=== PATIENT | male | born 1955 | race Caucasian/White ===

== ENCOUNTER 2018-05-02 13:46 | Inpatient (IN) | payer OTHER ==
[2018-05-02] MEDS ORDERED: BUPIVACAINE 0.5% (SDV) 30 ML INJ (16:16)
[2018-05-02] MEDS ORDERED: LIDOCAINE 2% (SDV) 5 ML INJ (16:18)
[2018-05-02] MEDS ORDERED: MIDAZOLAM 1 MG/ML 2 ML INJ (16:20)
[2018-05-02] MEDS ORDERED: ROPIVACAINE 0.5 % 30 ML VIAL (16:21)
[2018-05-02] MEDS ORDERED: POLYMYXIN/BACITRACIN 1L IRRIG (17:03)
[2018-05-02] MEDS ORDERED: CEFAZOLIN 1 GM INJ (17:19)
[2018-05-02] MEDS ORDERED: PHENYLephrine (100 MCG/ML) 5ML SYG (17:22)
[2018-05-02] MEDS ORDERED: NEOMYC/POLYMYX/BACIT 30 GM OINT (18:09)
[2018-05-02] MEDS: POLYMYXIN/BACITRACIN 1L IRRIG (18:10)
[2018-05-02] MEDS ORDERED: PROPOFOL 20 ML (20:10)
[2018-05-02] MEDS ORDERED: ONDANSETRON 4 MG INJ (20:10)
[2018-05-02] MEDS ORDERED: DEXAMETHASONE 4 MG/ML 5 ML INJ (20:10)
[2018-05-02] MEDS ORDERED: KETOROLAC 30 MG INJ (20:17)
[2018-05-02] MEDS ORDERED: HYDROmorphONE 1 MG/ML SYG IV (21:30)
[2018-05-02] MEDS ORDERED: KETOROLAC 30 MG INJ IV (21:30)
[2018-05-02] MEDS ORDERED: ALBUTEROL 0.083% (NEB) 2.5 MG/3 ML AMP HHN (21:30)
[2018-05-02] MEDS ORDERED: DIPHENHYDRAMINE 50 MG INJ IV (21:30)
[2018-05-02] MEDS ORDERED: FENTAnyl 50 MCG/ML VIAL IV ×3 (21:30)
[2018-05-02] MEDS ORDERED: hydrALAzine 20 MG INJ IV (21:30)
[2018-05-02] MEDS ORDERED: METOCLOPRAMIDE 10 MG INJ IV (21:30)
[2018-05-02] MEDS ORDERED: LABETALOL HCL 20MG INJ IV (21:30)
[2018-05-02] MEDS ORDERED: oxyCODONE 5 MG TAB PO (21:30)
[2018-05-02] MEDS ORDERED: ONDANSETRON 4 MG INJ IV ×2 (21:30)
[2018-05-02] MEDS ORDERED: OXYCODONE/ACETAMINOPHEN (5/325) TAB PO ×2 (21:30)
[2018-05-02] MEDS ORDERED: EPHEDrine SULFATE 50 MG/5 ML SYG IV (21:30)
[2018-05-02] MEDS ORDERED: HYDROmorphONE 1 MG/5 ML IV SYRINGE IV ×3 (21:30)
[2018-05-02] MEDS ORDERED: MAGNESIUM HYDROXIDE 30ML CUP PO (21:30)
[2018-05-02] MEDS ORDERED: CEFAZOLIN 1 GM INJ IV (21:30)
[2018-05-02] MEDS ORDERED: MIDAZOLAM 1 MG/ML 2 ML INJ IV (21:30)
[2018-05-02] MEDS ORDERED: DIPHENHYDRAMINE 25 MG CAP PO (21:30)
[2018-05-02] MEDS ORDERED: MEPERIDINE 25 MG INJ IV (21:30)
[2018-05-02] MEDS ORDERED: ACETAMINOPHEN 500 MG TAB PO ×2 (21:30)
[2018-05-03] MEDS: CEFAZOLIN 1 GM/50 ML (PMX) 50 ML IVPB ×3 (00:55→17:00)
[2018-05-03] MEDS: SOD CHLORIDE 0.9% 250 ML IV (04:29)
[2018-05-03 05:40] LABS: ADD MAN DIFF? NO
[2018-05-03 05:54] LABS: BASOPHILS % 0.1 % (0.0-2.0); HEMATOCRIT 35.7 % (42.0-52.0); HEMOGLOBIN 11.9 g/dl (14.0-18.0); LYMPHOCYTES # 0.7 10^3/ul (0.8-2.9); LYMPHOCYTES % 5.6 % (15.0-51.0); MEAN CORPUSCULAR HEMOGLOBIN 30.3 pg (29.0-33.0); MEAN CORPUSCULAR HGB CONC 33.3 g/dl (32.0-37.0); MEAN CORPUSCULAR VOLUME 90.8 fl (82.0-101.0); MEAN PLATELET VOLUME 9.9 fl (7.4-10.4); MONOCYTE # 0.5 10^3/ul (0.3-0.9); MONOCYTES % 3.8 % (0.0-11.0); NEUTROPHIL # 10.5 10^3/ul (1.6-7.5); PLATELET COUNT 261 10^3/UL (140-415); RED BLOOD COUNT 3.93 10^6/ul (4.70-6.10); RED CELL DISTRIBUTION WIDTH 12.4 % (11.5-14.5)
[2018-05-03 05:54] LABS: WHITE BLOOD COUNT 11.7 10^3/ul (4.8-10.8)
[2018-05-03 06:15] LABS: ALANINE AMINOTRANSFERASE 42 IU/L (13-69); ALBUMIN 3.7 g/dl (3.3-4.9); ALBUMIN/GLOBULIN RATIO 1.32; ALKALINE PHOSPHATASE 107 IU/L (42-121); ANION GAP 7 (5-13); ASPARTATE AMINO TRANSFERASE 22 IU/L (15-46); BILIRUBIN,INDIRECT 0.1 mg/dl (0-1.1); BILIRUBIN,TOTAL 0.1 mg/dl (0.2-1.3); BLOOD UREA NITROGEN 31 mg/dl (7-20); CALCIUM 9.5 mg/dl (8.4-10.2); CARBON DIOXIDE 28 mmol/L (21-31); CHLORIDE 105 mmol/L (97-110); CREATININE 1.24 mg/dl (0.61-1.24); Estimated GFR 59 mL/min (>60); GLUCOSE 142 mg/dl (70-220); POTASSIUM 4.9 mmol/L (3.5-5.1); SODIUM 140 mmol/L (135-144); TOTAL PROTEIN 6.5 g/dl (6.1-8.1)
[2018-05-03] MEDS: CEPASTAT LOZENGE MT (06:52)
[2018-05-03] MEDS: GABAPENTIN 300 MG CAP PO ×2 (08:46→13:00)
[2018-05-03] MEDS: SENNA/DOCUSATE NA (8.6MG/50MG) TAB PO (08:46)
[2018-05-03] MEDS: ASCORBIC ACID 500 MG TAB PO (08:47)
[2018-05-03] MEDS: CHOLECALCIFEROL 2,000 UNIT CAP PO (08:47)
[2018-05-03] MEDS: ASPIRIN (EC) 325 MG TAB PO (08:53)
[2018-05-04] MEDS ORDERED: MAGNESIUM HYDROXIDE 30ML CUP PO (21:00)
== END 2018-05-03 18:55 | disposition home or self-care (01) | DRG 494 ==
LOC: REC 13:46 → MS1 22:53
PROC: 0QSM04Z Reposition Left Tarsal with Internal Fixation Device, Open Approach (ICD-10-PCS; principal; 2018-05-02 16:30)
PROC: 0QBH0ZZ Excision of Left Tibia, Open Approach (ICD-10-PCS; 2018-05-02 16:30)
PROC: 0QUM0JZ Supplement Left Tarsal with Synthetic Substitute, Open Approach (ICD-10-PCS; 2018-05-02 16:30)
PROC: 0QUM07Z Supplement Left Tarsal with Autologous Tissue Substitute, Open Approach (ICD-10-PCS; 2018-05-02 16:30)
DX: S92.002A Unspecified fracture of left calcaneus, initial encounter for closed fracture (principal); I10 Essential (primary) hypertension; R00.0 Tachycardia, unspecified; X58.XXXA Exposure to other specified factors, initial encounter; Y93.9 Activity, unspecified; Y92.9 Unspecified place or not applicable; Y99.8 Other external cause status
CPT/HCPCS: 73650-LT; 80053; 82306; 85025; 97116; 97161; 97530